=== PATIENT | female | born 1960 | race Caucasian/White ===

== ENCOUNTER 2020-01-12 02:26 | Emergency (ER) | payer OTHER ==
[~2020-01-12] VITALS: Wt 83.9 kg
[~2020-01-12 02:26] MED LIST: FLEXERIL10 MG PO; NAPROSYN500 MG PO; VICODIN 5/500 505 MG PO
== END 2020-01-12 03:50 | disposition home or self-care (01) ==
LOC: ED 02:26
DX: S39.012A Strain of muscle, fascia and tendon of lower back, initial encounter (principal); X58.XXXA Exposure to other specified factors, initial encounter; Y93.89 Activity, other specified; Y92.89 Other specified places as the place of occurrence of the external cause; Y99.8 Other external cause status